=== PATIENT | male | born 2005 | race Caucasian/White ===

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

== ENCOUNTER 2024-06-23 15:14 | Emergency (ER) | payer OTHER ==
[2024-06-23] MEDS ORDERED: Lidocaine 1% 5 ML VIAL INJECT ONE (15:21)
[2024-06-23] MEDS: Lidocaine 1% 20 ML MDV INJECT ONE (15:30)
[2024-06-23] MEDS: Lidocaine 1% 20 ML MDV ONE (15:44)
[2024-06-23] MEDS: Bacitracin/Neomycin/Polymyxin B Oint 0.9 GM U/D Packet TOP ONE (15:45)
[2024-06-23] MEDS: Diphtheria,Pertussis(Acell),Tetanus Vaccine 0.5 ML Syringe IM ONE (15:50)
[2024-06-23 15:52] VITALS: BP 126/80; PULSE 76
== END 2024-06-23 16:00 | disposition home or self-care (01) ==
LOC: KA.ED 15:14
DX: S61.411A Laceration without foreign body of right hand, initial encounter (principal); W26.8XXA Contact with other sharp object(s), not elsewhere classified, initial encounter; Z23 Encounter for immunization
CPT/HCPCS: 12001; 90471; 90715; 99282-25; J3490

== ENCOUNTER 2024-10-12 08:35 | Emergency (ER) | payer BC ==
[2024-10-12] MEDS: Rabies Immune Globulin/PF (HyperRAB) 300 UNIT/ML 5 ML SDV IM ONE (09:28)
[2024-10-12] MEDS: Rabies Vaccine (Avian) 2.5 Unit Inj Kit IM ONE (09:33)
[2024-10-12 11:20] VITALS: BP 114/85; PULSE 67
== END 2024-10-12 10:16 | disposition home or self-care (01) ==
LOC: KA.ED 08:35
DX: S61.551A Open bite of right wrist, initial encounter (principal); W55.51XA Bitten by raccoon, initial encounter; Z23 Encounter for immunization
CPT/HCPCS: 90375; 90471; 90675; 96372; 99283-25